=== PATIENT | male | born 1965 | race Caucasian/White ===

== ENCOUNTER 2017-08-23 05:37 | Outpatient (CLI) | payer BC ==
[~2017-08-23] VITALS: Ht 177.8 cm; Wt 74.8 kg
[2017-08-23] MEDS ORDERED: ENAL10TA PO (10:38)
== END 2017-08-23 10:40 ==
LOC: PREOP 05:37
PROVIDERS: ATTEND Surgery
DX: Z01.818 Encounter for other preprocedural examination (principal); Z12.11 Encounter for screening for malignant neoplasm of colon

== ENCOUNTER 2017-08-25 09:12 | Day surgery (SDC) | payer BC ==
[~2017-08-25] VITALS: Ht 177.8 cm; Wt 74.8 kg
[~2017-08-25 09:12] MED LIST: ENAL10TA PO
--- OUTSIDE RECORDS SUMMARY | 2017-08-25 09:14 | XMS REPORT ---
Author Author MERVIN MCCRACKEN [facility] Address [address] [place] [id number] Care Team Providers Care Medical Cost Consultant Name Role Phone MERVIN MCCRACKEN Unavailable PROBLEMS Type Condition ICD9-CM Code [id number] Code Onset Dates Condition Status SNOMED Code Problem Anxiety disorder, unspecified type F41.9 Active [id number] ALLERGIES No Information SOCIAL HISTORY Never Assessed PLAN OF CARE Activity Details Follow Up 6 Weeks Reason:BH F/U VITAL SIGNS MEDICATIONS Unknown Medications RESULTS No Results PROCEDURES Procedure Date Ordered Result Body Site Psychotherapy, patient &/family, 45 minutes, established patient Jan 13, 2017 IMMUNIZATIONS No Known Immunizations
--- OUTSIDE RECORDS SUMMARY | 2017-08-25 09:14 | XMS REPORT ---
Author Author MERVIN MCCRACKEN [facility] Address [address] [place] [address] Care Team Providers Care Inspector And Tester Name Role Phone MERVIN MCCRACKEN Unavailable PROBLEMS Type Condition ICD9-CM Code [id number] Code Onset Dates Condition Status SNOMED Code Problem Anxiety disorder, unspecified type F41.9 Active [id number] ALLERGIES Unknown Allergies SOCIAL HISTORY No smoking Hx information available PLAN OF CARE Activity Details Follow Up 3 Weeks Reason:BH F/U VITAL SIGNS MEDICATIONS Unknown Medications RESULTS No Results PROCEDURES Procedure Date Ordered Related Diagnosis Body Site Psych diagnostic evaluation, established patient Dec 24, 2016 IMMUNIZATIONS No Known Immunizations
--- OUTSIDE RECORDS SUMMARY | 2017-08-25 09:14 | XMS REPORT ---
Author Author LOVELY DONOHUE [facility] Address [address] [place] [address] Care Team Providers Care Assembler [employer]urbine Name Role Phone LOVELY DONOHUE Unavailable PROBLEMS Type Condition ICD9-CM Code [id number] Code Onset Dates Condition Status SNOMED Code Problem Anxiety disorder, unspecified type F41.9 Active [id number] ALLERGIES Unknown Allergies SOCIAL HISTORY No smoking Hx information available PLAN OF CARE VITAL SIGNS MEDICATIONS Unknown Medications RESULTS No Results PROCEDURES Procedure Date Ordered Related Diagnosis Body Site FLUARIX QUAD P-FREE 3 AND UP .50 2015Nov 05, 2016 SINGLE IMMUNIZATION ADMIN Nov 05, 2016 IMMUNIZATIONS Vaccine Route Administration Date Status FLUARIX QUAD P-FREE 3 AND UP .50 2015 IM Intramuscular Nov 05, 2016 Administered
[2017-08-25] MEDS ORDERED: NS IV 500 ML 500 ML IV PRN (09:25)
[2017-08-25] MEDS ORDERED: LIDOCAINE JELLY 2% (XYLOCAINE) 5 ML TUBE TOP ONE (09:30)
[2017-08-25 09:43] VITALS: BP 132/85
--- NOTE | 2017-08-25 10:44 | Conscious Sedation/ASA ---
Conscious Sedation Pre-Proced Time Reviewed: 10:40 ASA Class: 2 Airway Mallampati Classification: ([place] appropriate class) I. II. III, IV Lungs Heart ASA score ASA 1: a normal healthy patient ASA 2: a patient with a mild systemic disease (mid diabetes, controlled hypertension, obesity ASA 3: a patient with a severe systemic disease that limits activity (angina , COPD, prior Myocardial infarction) ASA 4: a patient with an incapacitating disease that is a constant threat to life (CHF, renal failure) ASA 5: a moribund patient not expected to survive 24 hrs. (ruptured aneurysm) ASA 6: a declared brain patient whose organs are being harvested. For emergent operations, add the letter E after the classification Grade 2 Sedation Plan: Analgesia, Amnesia, Plan communicated to team members, Discussed options with patient/fam, Discussed risks with patient/fam Note The patient is an appropriate candidate to undergo the planned procedure, sedation, and anesthesia. The patient immediately re-assessed prior to indication. FRANKLIN CHAVEZ MD Aug 25, 2017 10:44 am
[2017-08-25] MEDS ORDERED: ACETAMINOPHEN 325 MG TABLET/CAPLET (TYLENOL) PO PRN (10:45)
[2017-08-25] MEDS ORDERED: HYDROcodone/APAP 5 MG/325 MG (LORTAB) TAB PO PRN (10:45)
[2017-08-25] MEDS ORDERED: morphine INJ 10 MG/ML 1ML (SYR OR VIAL) IV PRN (10:45)
[2017-08-25] MEDS ORDERED: ONDANSETRON 4 MG/2 ML (SDV) Z0FRAN IV PRN (10:45)
--- NOTE | 2017-08-25 10:45 | Progress Note-Pre Operative ---
Pre-Operative Progress Note H&P Reviewed The H&P was reviewed, patient examined and no changes noted. Date Seen by Provider: Aug 25, 2017 Time Seen by Provider: 10:40 Date H&P Reviewed: Aug 25, 2017 Time H&P Reviewed: 10:40 Pre-Operative Diagnosis: screening colonoscopy FRANKLIN CHAVEZ MD Aug 25, 2017 10:45 am
[2017-08-25] MEDS ORDERED: LIDOCAINE JELLY 2% (XYLOCAINE) 5 ML TUBE ONE (10:52)
[2017-08-25] MEDS ORDERED: MIDAZOLAM 2 MG/2 ML (VERSED) VIAL ONE ×7 (10:53→11:27)
[2017-08-25] MEDS ORDERED: fentaNYL INJECTION 100 MCG/2 ML AMP ONE ×2 (10:53)
[2017-08-25] MEDS: fentaNYL INJECTION 100 MCG/2 ML AMP IVP PRN ×4 (11:18→11:38)
[2017-08-25] MEDS: MIDAZOLAM 2 MG/2 ML (VERSED) VIAL IVP PRN ×4 (11:19→11:39)
--- NOTE | 2017-08-25 11:58 | Progress Note-Post Operative ---
Post-Operative Progess Note Surgeon (s)/Deposition Operator (s) Surgeon FRANKLIN CHAVEZ MD Deposition Operator: none Pre-Operative Diagnosis screening colonoscopy Post-Operative Diagnosis normal colon and rectum Procedure & Operative Findings Date of Procedure 08/25/17 Procedure Performed/Findings Colonoscopy Anesthesia Type CS Estimated Blood Loss Estimated blood loss (mL): minimal Specimens/Packing Specimens Removed none FRANKLIN CHAVEZ MD Aug 25, 2017 11:58 am
--- NOTE | 2017-08-25 12:00 | Discharge Inst-Surgical ---
D/C Lap Instructions-SCOTT Follow Up 10 years Activity as tolerated High Fiber Diet 25g or more per day Avoid Alcohol, Caffeine, Spicy [place] and Acid foods. Drink 64 fluid oz or more of fluids per day. Symptoms to Report: Fever over 101 degree F, Nausea/Vomiting If any problems/questions: Contact your physician or go to Emergency Room FRANKLIN CHAVEZ MD Aug 25, 2017 12:00 pm
[2017-08-25 12:15] VITALS: BP 104/68
[2017-08-25 12:41] VITALS: BP 104/68
[2017-08-25 12:50] VITALS: BP 104/68
--- NOTE | 2017-08-26 06:18 | OPERATIVE REPORT ---
DATE OF SERVICE: 08/25/2017 ATTENDING PRIMARY CARE PHYSICIAN: Dr. Bill PREOPERATIVE DIAGNOSIS: Screening colonoscopy. POSTOPERATIVE DIAGNOSIS: Normal colon and rectum. PROCEDURE: Colonoscopy. SURGEON: Dr. Chavez. ANESTHESIA: Conscious sedation. ESTIMATED BLOOD LOSS: Minimal. FINDINGS: Normal colon, rectum and prostate gland. DISPOSITION: The patient tolerated the procedure well. INDICATIONS: The patient is a 52-year-old male in need of a screening colonoscopy. He has not had a colonoscopy up to this point in his life. He reports that he is doing well and does not report any major issues with diarrhea or constipation as well as no red blood per rectum nor any dark tarry stools. He does not know of any family history due to the fact of being adopted. DESCRIPTION OF PROCEDURE: The patient was brought to the endoscopy suite, laid in the left lateral decubitus position. After adequate IV pain and sedative medications and conscious sedation anesthesia, a digital rectal examination was performed. No significant hemorrhoids were identified. Normal sphincter tone was felt and there were no palpable masses. Prostate gland was palpable and appeared normal. The endoscope was then intubated into the anus and the rectum and gently insufflated. The endoscope was then advanced through the valves of Bailey in the rectum with no polyps or any neoplasms identified. We then proceeded through the sigmoid colon where no diverticulosis identified. The endoscope was then advanced to the descending, transverse and ascending colon to the cecum. These segments were normal. There were no polyps or any neoplasms identified throughout the colon or rectum. The endoscope was then slowly withdrawn by taking a second look and suctioning of residual air with no additional findings. The patient tolerated the procedure well. We will have him continue with medical management with high fiber diet with at least 30 grams of fiber per day as well as at least 64 fluid ounces of water daily to promote soft stools on a daily basis. He does not need another colonoscopy for another 10 years. Job ID: [id number] DocumentID: [id number] Dictated Date: 08/25/2017 11:52:48 Chief Learning Officer Date: 08/25/2017 23:43:07 Dictated By: FRANKLIN CHAVEZ MD [facility]
== END 2017-08-25 12:50 | disposition home or self-care (01) ==
LOC: ENDO 09:12
PROVIDERS: ATTEND Surgery
DX: Z12.11 Encounter for screening for malignant neoplasm of colon; Z79.899 Other long term (current) drug therapy; I10 Essential (primary) hypertension

== ENCOUNTER → 2019-06-05 | Outpatient (CLI) | payer BC, OTHER | LOC: CARD 08:49 | PROVIDERS: ATTEND Internal Medicine Cardiovascular Disease | DX: I10 Essential (primary) hypertension (principal); R94.31 Abnormal electrocardiogram [ECG] [EKG] | CPT/HCPCS: 93306 ==

== ENCOUNTER → 2020-07-17 | Outpatient (CLI) | payer OTHER ==
[2020-07-17 11:04] VITALS: BP 132/86
--- NOTE | 2020-07-17 11:04 | Cardiology Stress Test Report ---
Stress Test Report Date of Procedure/Referring: Date of Procedure: Jul 17, 2020 PCP Myrna Jaramillo MD Admitting Physician No,Local Physician Indications: Abnormal ECG Baseline Heart Rate: 74 Baseline Blood Pressure: Blood Pressure Systolic: 132 Blood Pressure Diastolic: 86 Baseline EKG: Baseline EKG: normal sinus rhythm Summary/Conclusion: Summary: In summary, the patient started exercising with a baseline heart rate, blood pressure and EKG mentioned above Patient was able to exercise for a total of [12 ]minutes on Garrett protocol, METs 12.3 Maximum heart rate 155 Maximum blood pressure 168/71 Stress EKG, Minimal nondiagnostic changes Recovery EKG , Return to baseline Conclusion: 1. Good exercise tolerance for a total of 12 minutes on Garrett protocol, 12.3 METs, achieving 92 percent of maximum expected heart rate 2. Minimal nondiagnostic EKG changes with exercise returned to baseline during recovery 3. No arrhythmia was noted 4. There is no contraindication by cardiology to participate in any competitive sport or activity MYRNA JARAMILLO MD Jul 17, 2020 11:04 am
== END ==
LOC: CARD 10:30
PROVIDERS: ATTEND Internal Medicine Cardiovascular Disease
DX: I10 Essential (primary) hypertension (principal); R94.31 Abnormal electrocardiogram [ECG] [EKG]
CPT/HCPCS: 93017